=== PATIENT | female | born 1960 | race Caucasian/White ===

== ENCOUNTER 2025-04-08 17:53 | Emergency (ER) | payer MEDICAID ==
[~2025-04-08] VITALS: Ht 162.6 cm; Wt 67.7 kg
[2025-04-08 17:59] VITALS: BP 156/76; PULSE 99; RESP 20; TEMP 98; O2SAT 96
--- NOTE | 2025-04-08 18:25 | ED.PDOC ---
Musculoskeletal HPI Comments HPI: 65 y/o F, with PMHx of alcohol abuse presents to the ED for CC of lower extremity pain. Patient states, she has been experiencing bilateral lower extremity pain with weakness following, being bedbound d/t flu-like symptoms x1week. Patient further reports, recent frequent falls and bilateral arm numbness. 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 Patient denies any trauma, injury, or falls. No other symptoms or modifying factors are present at this time. Initial Vitals BP:156/76 HR:99 RR:20 O2:96% Temp:98.0 Past Medical History: DENIES ANY Past Surgical History:HYSTERECTOMY, , TONSILLECTOMY, BREAST TUMOR Social History: HEAVY ETOH ABUSE Medications: DENIES ANY Allergies: NKA LOPEZ: ETOH, EXT PAIN NUMBNESS FREQUENT FALLS, B/L HAND NUMBNESS, B/L LEG SORE HPI: Poor Historian. Past Medical History: Past Surgical History: REVIEW OF SYSTEMS: CONSTITUTIONAL: Denies acute: fever, diaphoresis, chills, HEAD: Denies acute: headache, photophobia Eyes: Denies acute: Double vision, vision loss, eye pain, eye discharge. EARS: Denies acute: tinnitus, hearing loss, ear discharge, ear pain, THROAT: Denies acute: sore throat, swelling, difficulty swallowing , pain with swallowing, change in voice. NECK: Denies acute: neck pain, neck swelling, stiff neck. HEART: Denies acute : chest pain, palpitations, LUNGS: Denies acute: SOB, wheezing, cough, hemoptysis ABDOMEN: Denies acute: abdominal pain, Nausea, Vomiting, diarrhea, melena , hematemesis, hematochezia SKIN: Denies acute: rash, redness, lesions, itchiness. EXTREMITIES: Denies acute: calf pain, weakness, denies pain in extremity. Denies acute: Low back pain. Neuro: Denies acute: focal neurological deficit, motor or sensory focal neurological deficit, tremors, seizure like activity, confusion, dizziness, change in mental status, loss of bowel or bladder function, cauda equina like symptoms. : Denies acute: dysuria, hematuria, flank pain, increase in urinary frequency. PSYCH: Denies acute: hallucination, suicidal ideation, homicidal ideation. FEMALE: Denies acute: abnormal vaginal bleeding, foul odor, unusual discharge. PHYSICAL EXAM: General: -----mild---acute distress, awake and alert. Head: normocephalic, atraumatic. Neck: supple, trachea is midline, no swelling. Throat: Normal phonation. Eyes:, no erythema, no purulent discharge, no proptosis, no icterus. Heart: regular rate, regular rhythm, no significant murmur appreciated. Lungs: no apparent respiratory distress, Able to speak in full sentences. No wheezing, no rhonchi, no crackles. No stridors Clear to auscultation bilaterally. Abdomen: non tender to palpation, non distended, soft, no guarding, no rebound, + bowel sounds. Neuro: Awake, Alert, oriented to name, self, situation, follows commands GCS=15. Speech is normal. Skin: no petechia, no purpura, no cyanosis, non-pale, not jaundice. Lower extremities: --no - Pitting edema no deformity, no focal swelling, no calf TTP. Palpation of bilateral thighs is slightly tender. Makes eye contact. moves all four extremities. Symmetrical muscle strength in all four extremities. Face: no apparent facial droop. Bilateral upper extremity: Equal oracle application architect muscle. Radial pulses palpable. Normal range of motion. Pedal pulses are palpable. ED COURSE: DISCLAIMER: This medical document was created using an electronic medical record system with voice recognition software and computerized dictation system. Although this document has been carefully reviewed, there might still be some phonetic and typographical errors. Occasional wrong-word or "sound-alike" substitutions may have occurred due to the inherent limitations of voice recognition software. These areas are purely typographical due to imperfections of the software programs and do not reflect any compromise in the patient's medical care. Please read the chart carefully and recognize, using context, where these substitutions have occurred. Chief Complaint: Lower Extremity Time Seen by MD: 18:30 Primary Care Provider: CORTEZ Reviewed Notes: Nurses Notes, Medications, Allergies Allergies: Coded Allergies: NO KNOWN ALLERGIES (Unverified , 05/07/14) Information Source: Patient Mode of Arrival: Ambulatory Location: Bilateral Extremity Location: Arm, Femur Timing: Weeks Prehospital treatment: None Severity: Moderate Able to Move Extremity: Yes Bear Weight: Limited Pain: Moderate Mechanism: Spontaneous Circumstances: Spontaneous Onset of Symptoms: Spontaneous DVT Risk Factors: NONE Last Tetanus: Unknown Associated signs and symptoms: Weakness, Numbness Was a procedure done? Was a procedure done?: No Differential Diagnosis EXT Differential Diagnosis: Arthritis X-Ray, Labs, Meds, VS Vital Signs Date Time Temp Pulse Resp B/P (MAP) Pulse Ox O2 Delivery O2 Flow Rate FiO2 04/08/25 17:59 98.0 99 20 156/76 96 98.0 Lab Test 04/08/25 20:39 04/08/25 19:26 04/08/25 18:23 Range/Units Troponin I High Sensitivity Pending 37 *H </=34 ng/L White Blood Count 11.9 H 4.4-10.8 10^3/uL Red Blood Count 3.04 L 4.0-5.20 10^6/uL Hemoglobin 11.5 L 12.2-16.2 g/dL Hematocrit 33.8 L 36.0-46.0 % Mean Corpuscular Volume 111.3 H 80.0-100.0 fL Mean Corpuscular Hemoglobin 37.9 H 28.0-32.0 pg Mean Corpuscular Hemoglobin Concent 34.1 32.0-36.0 g/dL Red Cell Distribution Width 15.4 H 11.8-14.3 % Platelet Count 300 140-450 10^3/uL Mean Platelet Volume 7.6 6.9-10.8 fL Neutrophils (%) (Auto) 70.7 37.0-80.0 % Lymphocytes (%) (Auto) 19.3 10.0-50.0 % Monocytes (%) (Auto) 8.1 0.0-12.0 % Eosinophils (%) (Auto) 1.2 0.0-7.0 % Basophils (%) (Auto) 0.7 0.0-2.0 % Neutrophils # (Auto) 8.4 1.6-8.6 10 ^3/uL Lymphocytes # (Auto) 2.3 0.4-5.4 10 ^3/uL Monocytes # (Auto) 1.0 0-1.3 10 ^3/uL Eosinophils # (Auto) 0.1 0-0.8 10 ^3/uL Basophils # (Auto) 0.1 0-0.2 10 ^3/uL Nucleated Red Blood Cells 0.1 % Sodium Level 137 136-145 mmol/L Potassium Level 2.6 L 3.5-5.1 mmol/L Chloride Level 93 L 98-107 mmol/L Carbon Dioxide Level 29 20-31 mmol/L Anion Gap 15 5-15 Blood Urea Nitrogen < 5 L 9-23 mg/dL Creatinine 0.75 0.550-1.02 mg/dL Glomerular Filtration Rate Calc 89 >90 mL/min BUN/Creatinine Ratio 6.7 L 10.0-20.0 Serum Glucose 130 H 74-106 mg/dL Calcium Level 9.3 8.7-10.4 mg/dL Magnesium Level 1.6 1.6-2.6 mg/dL Total Bilirubin 3.6 H 0.2-1.0 mg/dL Aspartate Amino Transferase (AST) 101 H 13-40 U/L Alanine Aminotransferase (ALT) 27 7-40 U/L Alkaline Phosphatase 174 H 46-116 U/L Creatine Kinase 76 34-145 U/L Total Protein 8.2 5.7-8.2 g/dL Albumin 3.8 3.2-4.8 g/dL Urine Color Yellow Yellow Urine Clarity Ex.turbid Clear Urine pH 6.0 5.0-9.0 Urine Specific [place] 1.017 1.001-1.035 Urine Protein 1+ H Negative Urine Ketones Negative Negative Urine Blood Trace H Negative /uL Urine Nitrite Negative Negative Urine Bilirubin 1+ H Negative Urine Urobilinogen 6 Negative mg/dL Urine Leukocyte Esterase 3+ Negative /uL Urine RBC 14 0 - 4 /hpf Urine WBC Clumps Present None Seen /hpf Urine Microscopic WBC 339 H 0-5 /HPF Urine Squamous Epithelial Cells Few <5 /hpf Urine Bacteria Mod H None Seen /hpf Urine Mucus Few None Seen Urine Glucose Normal Normal mg/dL [address] [address] Ph: [phone] DIAGNOSTIC IMAGING Diagnostic Imaging Report : [id number] Signed PATIENT: JER LOPEZ ACCT: [id number] UNIT: [id number] : 1960 LOC: ER ROOM / BED: / AGE / SEX: 65 / F ADM STATUS: REG ER SERVICE 597 ORDERING PHYSICIAN: CRYS TARANGO DO PROCEDURE(s): HWOCT - HEAD WITHOUT CONTRAST REASON: FREQUENT FALLS, B/L HAND NUMBNESS, B/L LEG SORE ORDER NUMBER(s): [id number], ACCESSION NUMBER(s): [id number] EXAM: CT HEAD WITHOUT CONTRAST INDICATION: FREQUENT FALLS, B/L HAND NUMBNESS, B/L LEG SORE TECHNIQUE: CT of the head without intravenous contrast. Radiation Dose Information: CT Dose: CTDI volume is 52.12 mGy. Dose-length product is 939.83 mGy*cm The dose indicators for CT are the volume Computed Tomography (CT) Dose Index (CTDIvol) and the Dose Length Product (DLP), and are measured in units of mGy and mGy-cm, respectively. These indicators are not patient dose, but values generated from the CT scanner acquisition factors. The report includes radiation exposure data for exposures received during this examination. COMPARISON: None FINDINGS: There is no evidence of acute intracranial hemorrhage, extra-axial collection, mass effect, midline shift, herniation or hydrocephalus. The ventricles, sulci and cisterns are age appropriate. The singh-white differentiation is intact. Patchy periventricular and subcortical white matter hypoattenuation is nonspecific but may be related to small vessel ischemic disease. The visualized paranasal sinuses and mastoid air cells are clear. The surrounding soft tissues and osseous structures are unremarkable. IMPRESSION: 1. No acute intracranial abnormality. 2. No acute intracranial hemorrhage 3. No CT findings of territorial ischemia. ATED BY: JERRY WAN Jr., DO DICTATED DATE/TIME: 04/08/251946 SIGNED BY: JERRY WAN Jr., SIGNED DATE/TIME: 04/08/251946 CC: Time of 1ST Reevaluation: 19:00 Reevaluation 1ST: Unchanged Patient Education/Counseling: Diagnosis, Treatment Family Education/Counseling: No Family Present Departure 1 Departure Time of Disposition: 20:48 Impression: Primary Impression: Bilateral hand numbness Additional Impressions: Frequent falls Bilateral leg pain Elevated troponin Hypokalemia Elevated LFTs UTI (urinary tract infection) Disposition: ADMITTED INPATIENT Admit to: [facility] Condition: Guarded Additional Instructions: [address] [place] - [address] Ph: [phone] DIAGNOSTIC IMAGING Diagnostic Imaging Report : [id number] Signed PATIENT: JER LOPEZ ACCT: [id number] UNIT: [id number] : 1960 LOC: ER ROOM / BED: / AGE / SEX: 65 / F ADM STATUS: REG ER SERVICE 51 ORDERING PHYSICIAN: CRYS TARANGO DO PROCEDURE(s): HWOCT - HEAD WITHOUT CONTRAST REASON: FREQUENT FALLS, B/L HAND NUMBNESS, B/L LEG SORE ORDER NUMBER(s): [id number], ACCESSION NUMBER(s): [id number] EXAM: CT HEAD WITHOUT CONTRAST INDICATION: FREQUENT FALLS, B/L HAND NUMBNESS, B/L LEG SORE TECHNIQUE: CT of the head without intravenous contrast. Radiation Dose Information: CT Dose: CTDI volume is 52.12 mGy. Dose-length product is 939.83 mGy*cm The dose indicators for CT are the volume Computed Tomography (CT) Dose Index (CTDIvol) and the Dose Length Product (DLP), and are measured in units of mGy and mGy-cm, respectively. These indicators are not patient dose, but values generated from the CT scanner acquisition factors. The report includes radiation exposure data for exposures received during this examination. COMPARISON: None FINDINGS: There is no evidence of acute intracranial hemorrhage, extra-axial collection, mass effect, midline shift, herniation or hydrocephalus. The ventricles, sulci and cisterns are age appropriate. The singh-white differentiation is intact. Patchy periventricular and subcortical white matter hypoattenuation is nonspecific but may be related to small vessel ischemic disease. The visualized paranasal sinuses and mastoid air cells are clear. The surrounding soft tissues and osseous structures are unremarkable. IMPRESSION: 1. No acute intracranial abnormality. 2. No acute intracranial hemorrhage 3. No CT findings of territorial ischemia. ATED BY: JERRY WAN Jr., DO DICTATED DATE/TIME: 04/08/251946 SIGNED BY: JERRY WAN Jr., SIGNED DATE/TIME: 04/08/251946 CC: Discharged With: Self Critical Care Note Critical Care Time?: No I personally scribed for CRYS TARANGO DO ([email or web address]) on 04/08/25 at 18:25. Electronically submitted by Richelle Santamaria ([email or web address]). I personally scribed for CRYS TARANGO DO ([email or web address]) on 04/08/25 at 19:04. Electronically submitted by Richelle Santamaria ([email or web address]). I personally scribed for CRYS TARANGO DO ([email or web address]) on 04/08/25 at 20:20. Electronically submitted by Richelle Santamaria ([email or web address]). CRYS TARANGO DO Apr 08, 2025 18:25
[2025-04-08] MEDS ORDERED: SODIUM CHLORIDE 0.9% 1,000 ML IV ONE (19:00)
[2025-04-08] MEDS ORDERED: THIAMINE HCL 100 MG TAB PO ONE (19:00)
[2025-04-08 19:49] LABS: Mean Corpuscular Hemoglobin 37.9 pg (28.0-32.0); Nucleated Red Blood Cells % 0.1 %
--- NOTE | 2025-04-08 19:49 | DVH ---
EXAM: CT HEAD WITHOUT CONTRAST INDICATION: FREQUENT FALLS, B/L HAND NUMBNESS, B/L LEG SORE TECHNIQUE: CT of the head without intravenous contrast. Radiation Dose Information: CT Dose: CTDI volume is 52.12 mGy. Dose-length product is 939.83 mGy*cm The dose indicators for CT are the volume Computed Tomography (CT) Dose Index (CTDIvol) and the Dose Length Product (DLP), and are measured in units of mGy and mGy-cm, respectively. These indicators are not patient dose, but values generated from the CT scanner acquisition factors. The report includes radiation exposure data for exposures received during this examination. COMPARISON: None FINDINGS: There is no evidence of acute intracranial hemorrhage, extra-axial collection, mass effect, midline s hift, herniation or hydrocephalus. The ventricles, sulci and cisterns are age appropriate. The singh-white differentiation is intact. Patchy periventricular and subcortical white matter hypoattenuation is nonspecific but may be related to small vessel ischemic disease. The visualized paranasal sinuses and mastoid air cells are clear. The surrounding soft tissues and osseous structures are unremarkable. IMPRESSION: 1. No acute intracranial abnormality. 2. No acute intracranial hemorrhage 3. No CT findings of territorial ischemia.
[2025-04-08 19:52] LABS: Hematocrit 33.8 % (36.0-46.0); Hemoglobin 11.5 g/dL (12.2-16.2); Mean Corpuscular Volume 111.3 fL (80.0-100.0)
[2025-04-08 20:06] LABS: Creatine Kinase IFCC 76.0 U/L (34-145)
[2025-04-08 20:07] LABS: Alanine Aminotransferase 27 U/L (7-40); Albumin 3.8 g/dL (3.2-4.8); Anion Gap 15 (5-15); Calcium 9.3 mg/dL (8.7-10.4); Carbon Dioxide 29 mmol/L (20-31); Magnesium 1.6 mg/dL (1.6-2.6); Sodium 137 mmol/L (136-145); Total Protein 8.2 g/dL (5.7-8.2)
[2025-04-08 20:09] LABS: BUN/Creatinine Ratio 6.7 (10.0-20.0); Blood Urea Nitrogen < 5 mg/dL (9-23); Chloride 93 mmol/L (98-107); Glucose 130 mg/dL (74-106); Potassium 2.6 mmol/L (3.5-5.1)
[2025-04-08 20:10] LABS: Alkaline Phosphatase 174 U/L (46-116); Bilirubin, Total 3.6 mg/dL (0.2-1.0)
[2025-04-08 20:12] LABS: Urine Protein, UAD 1+ (Negative); Urine WBC Clumps PRESENT /hpf (None Seen)
[2025-04-08] MEDS ORDERED: POTASSIUM CHL 20 Meq TABLET PO ONE (21:00)
== END 2025-04-08 23:32 | disposition left against medical advice (07) ==
LOC: ER 17:53
DX: R20.0 Anesthesia of skin (principal); M79.604 Pain in right leg; M79.605 Pain in left leg; R53.1 Weakness; R29.6 Repeated falls; R79.89 Other specified abnormal findings of blood chemistry; E87.6 Hypokalemia; F10.10 Alcohol abuse, uncomplicated; N39.0 Urinary tract infection, site not specified; Z90.710 Acquired absence of both cervix and uterus
CPT/HCPCS: 36415; 70450; 80053; 81001; 82550; 83735; 84484; 85025